=== PATIENT | male | born 1985 | race Two or more races ===

== ENCOUNTER 2025-03-14 21:49 | Emergency (ER) | payer BC, MEDICAID, SELFPAY ==
[2025-03-14 21:51] VITALS: BMI 38.0
[2025-03-14 22:02] VITALS: BP 164/102; PULSE 60; RESP 20; TEMP 36.7; O2SAT 99
--- NOTE | 2025-03-14 22:07 | XR_ITS ---
Examination: CT abdomen and pelvis without contrast. Coronal 3-D reconstructions. Sagittal 2-D reconstructions. Date and time of exam:March 14, 2025, 1038 hours INDICATIONS: Left flank pain beginning one hour ago CTDI: vol (mGy): 11.7 DLP: (mGycm): 832 Technique: Axial images of the abdomen have been obtained, 3 mm slice thickness Intravenous contrast material has not been administered. Low dose protocols were performed. One or more of the following dose reduction techniques were used; automated exposure control, adjustment of the mA and/or KV according to patient size, use of iterative reconstruction technique. Findings: No liver or splenic lesions No gallstones. No pancreatic mass Significant scarring left kidney and right kidney No renal or ureteral calculi, no hydronephrosis Aorta normal size Normal appendix No bowel obstruction No bladder mass No prostatomegaly Grade 1 spondylolisthesis of L5 on S1 with advanced degenerative disc disease at this level IMPRESSION: Significant bilateral renal scarring No hydronephrosis or ureteral calculi No bladder mass or bladder calculi
--- NOTE | 2025-03-14 22:10 | PD.EDBACK ---
ED Back Injury Pain RME/HPI General Chief Complaint: Back Pain/Injury Stated Complaint: SUDDEN ONSET L FLANK/BACK PAIN NV Time Seen by Provider: 03/14/25 21:54 Source: patient, family, RN notes reviewed and old records reviewed Arrival date/time: 03/14/25 21:49 Mode of arrival: ambulatory Limitations: no limitations RME / HPI RME / HPI Narrative: 39yom presents to ED for sudden onset of left flank pain that initiated 1-2 hours prior to ED arrival. Patient reports nausea and vomiting. No fever, abdominal pain, diarrhea or urinary symptoms reported. Patient took ibuprofen at home but vomited shortly after. Denies history of kidney stones. Related Data Home Medications ?Medication ?Instructions ?Recorded ?Confirmed aspirin 81 mg tablet,delayed 81 mg PO QDAY 05/15/19 05/15/19 release (Aspir-) atorvastatin 80 mg tablet 80 mg PO QDAY 05/15/19 05/15/19 metoprolol tartrate 50 mg tablet 50 mg PO BID 05/15/19 05/15/19 ticagrelor 90 mg tablet (Brilinta) 90 mg PO BID 05/15/19 05/15/19 Previous Rx's ?Medication ?Instructions ?Recorded amoxicillin 875 mg-potassium 1 tab PO BID #14 tabs 05/17/19 clavulanate 125 mg tablet (Augmentin) blood-glucose meter (Advocate #1 ea 05/17/19 Redi-Code Glucose Monitor kit) insulin glargine 100 unit/mL (3 30 unit (0.3 mL) subcut QDAY #15 mL 05/17/19 mL) subcutaneous pen (Lantus Solostar U-100 Insulin) acetaminophen 500 mg tablet 1,000 mg (2 x 500 mg) PO Q6H PRN 03/15/25 (Tylenol Extra Strength) pain #30 tabs methocarbamol 500 mg tablet 1,000 mg (2 x 500 mg) PO Q8H PRN 03/15/25 pain #30 tabs naproxen 500 mg tablet (Naprosyn) 500 mg PO BID PRN pain #20 tabs 03/15/25 ondansetron 4 mg disintegrating 4 mg PO Q6H PRN nausea and 03/15/25 tablet vomiting #10 tabs Allergies Allergy/AdvReac Type Severity Reaction Status Date / Time No Known Allergies Allergy Verified 03/14/25 21:53 Review of Systems Review of Systems Systems Reviewed: All systems reviewed, normal except as documented Constitutional Constitutional: Denies chills and Denies fever(s) Gastrointestinal Gastrointestinal: Denies abdominal pain, Denies loose stools, Reports nausea and Reports vomiting Genitourinary Genitourinary: Denies dysuria, Reports flank pain and Denies hematuria Past Medical History Past Medical History CARDIAC: Positive Myocardial Infarction, Coronary Artery Disease and Hypertension GASTROINTESTINAL: Positive Obesity Surgical History SURGICAL: Positive Coronary Stent Social History SMOKING STATUS: Never smoker SUBSTANCE USE: does not use ALCOHOL: Never ED Exam General Limitations: Present no limitations General appearance: Present alert, in no apparent distress and other (appears uncomfortable 2/2 pain) Head Head exam: Present atraumatic and normocephalic Eye Eye exam: Present normal appearance, PERRL and EOMI ENT ENT exam: Present normal exam and mucous membranes moist Neck Neck exam: Present normal inspection and full ROM Chest Chest inspection: Present normal inspection and symmetric chest wall rise Respiratory Respiratory exam: Present normal lung sounds bilaterally; Absent respiratory distress Cardiovascular Cardiovascular exam: Present regular rate and normal rhythm Abdominal Exam Abdominal exam: Present soft; Absent distention, tenderness, guarding or rebound Extremities Exam Extremities exam: Present normal inspection and full ROM Back Exam Back exam: Present CVA tenderness (L) Neurological Exam Neurological exam: Present alert and oriented X3 Psychiatric Psychiatric exam: Present normal affect and normal mood Skin Skin exam: Present warm, dry, intact and normal color Course Quality Measures none Orders Category Date Time Status EKG (ED ONLY) *Do not use* NOW Care 03/14/25 23:50 Completed Insert IV NOW Care 03/15/25 00:[address] abdomen pelvis wo con Stat Exams 03/14/25 22:07 Completed EKG (ED Only) Stat Exams 03/14/25 23:50 Ordered CBC Stat Lab 03/14/25 23:14 Completed CMP [Comprehensive Metabolic Panel] Stat Lab 03/14/25 23:14 Completed Lipase Stat Lab 03/14/25 23:14 Completed Potassium Stat Lab 03/14/25 23:48 Completed Troponin I Stat Lab 03/14/25 23:48 Completed UA [Urinalysis] Stat Lab 03/15/25 01:38 Completed HYDROcodone/APAP 10/325 [Jelm 10/325] Med 03/14/25 22:07 Discontinued 1 tab PO X1 ONE Ketorolac Inj [Toradol Inj] Med 03/14/25 22:07 Discontinued 30 mg IM X1 ONE Morphine Inj Med 03/15/25 00:31 Discontinued 4 mg IVP X1 ONE Ondansetron Inj [Zofran Inj] Med 03/14/25 22:07 Discontinued 4 mg IM X1 ONE Sodium Chloride 0.9% 1000 ml [Ns] 1,000 ml Med 03/15/25 00:08 Discontinued IV 999 mls/hr Vital Signs Vital signs: Vital Signs Temperature 98.0 F 03/14/25 22:02 Pulse Rate 60 03/14/25 22:02 Respiratory Rate 20 03/14/25 22:02 Blood Pressure 164/102 H 03/14/25 22:02 Pulse Oximetry (%) 99 03/14/25 22:02 Oxygen Delivery Method Room Air 03/14/25 22:02 PROCEDURES: EKG Interpretation #1: Date of EK03/15/25 Rate: 55 Interpretation: Interpreted by me EKG Impression: No acute ST-T changes Additional EKG comment: Sinus archie. Incomplete RBBB (old). Back Pain / Injury MDM Narrative MDM Narrative:: 39yom presents to ED for sudden onset of left flank pain that initiated 1-2 hours prior to ED arrival. Patient reports nausea and vomiting. No fever, abdominal pain, diarrhea or urinary symptoms reported. Patient took ibuprofen at home but vomited shortly after. Denies history of kidney stones. Patient reassessed. Symptoms improved, resting comfortably in ED bed. Patient updated on labs and imaging. Encouraged adequate fluids,symptomatic treatment prn. Stable for dc, RTED precautions given. Patient data External records reviewed:: [facility] previous records (05/15/19 admission for pneumonia) Clinical information provided by:: patient and family (sister) Social determinants that could affect healthcare access:: none Patient has the following chronic illnesses:: DM, HTN, CAD, obesity How is presenting disease/condition affected by chronic disease/condition?: exacerbated by Evaluation data The following diagnostics were reviewed and interpreted by me:: lab results and radiology exam(s) Lab and/or radiology exams considered but not ordered:: none Interpretation Summary: CT abd/pelvis: IMPRESSION: Significant bilateral renal scarring No hydronephrosis or ureteral calculi No bladder mass or bladder calculi Dictated By: George Morrell MD Potassium 5.9, suspect hemolyzed. Recheck K 5.2, minimal elevation. Giving IVF No peaked t waves on EKG Glucose elevated 344. hx DM, giving IVF Creatinine 1.4, minimally elevated Negative troponin UA Medications / Prescriptions Medications or Prescriptions considered but not ordered:: No antibiotics recommended at this time Medication administrations:: Medication Administration History Discontinued Medications Hydrocodone Bitart/Acetaminophen (Hydrocodone/Apap 10/325 Tab) 1 tab PO X1 ONE Stop: 03/14/25 22:08 Last Admin: 03/14/25 22:22 Dose: 1 tab Documented By: BD Sodium Chloride (Ns) 1,000 mls @ 999 mls/hr IV .Q1H1M ONE Stop: 03/15/25 01:08 Last Infusion: 03/15/25 01:28 Dose: Infused Documented By: Admin: 03/15/25 00:54 Dose: 999 mls/hr Documented By: BD Ketorolac Tromethamine (Ketorolac Inj 60 Mg/2 Ml Vial) 30 mg IM X1 ONE Stop: 03/14/25 22:08 Last Admin: 03/14/25 22:22 Dose: 30 mg Documented By: BD Morphine Sulfate (Morphine Sulf Inj 10 Mg/Ml Vial) 4 mg IVP X1 ONE Stop: 03/15/25 00:32 Last Admin: 03/15/25 00:53 Dose: 4 mg Documented By: BD Ondansetron HCl (Ondansetron Inj 2 Mg/Ml Inj 2 Ml) 4 mg IM X1 ONE; Protocol Stop: 03/14/25 22:08 Last Admin: 03/14/25 22:22 Dose: 4 mg Documented By: BD Comments: given im above medications administered in ED Consultations Consultation(s) initiated? (list below): No Diagnosis Differential diagnosis back pain/injury: lumbar radiculopathy, sciatica, strain of lumbar region, renal colic and pyelonephritis Most likely diagnosis given after review of the tests above:: flank pain, hyperglycemia Admission Indicated Admission indicated?: not indicated Admission Request Was there a request for admission?: No Disposition Plan Disposition Plan: Discharge Discharge Attestation Discharge Attestation: The patient and all family members were given an opportunity to ask questions and understood the discharge instructions. Discharge instructions specifically effects, indications for sooner follow up or return to the emergency department, and the expected course of current diagnosis. Patient condition: Stable Discharge Plan Plan Patient Disposition: HOME (Self Care) Patient condition on transfer: Stable Prescriptions/Referrals Prescriptions/Med Rec: New ondansetron 4 mg tablet,disintegrating 4 mg PO Q6H PRN (Reason: nausea and vomiting) Qty: 10 0RF naproxen [Naprosyn] 500 mg tablet 500 mg PO BID PRN (Reason: pain) Qty: 20 0RF methocarbamol 500 mg tablet 1,000 mg PO Q8H PRN (Reason: pain) Qty: 30 0RF acetaminophen [Tylenol Extra Strength] 500 mg tablet 1,000 mg PO Q6H PRN (Reason: pain) Qty: 30 0RF No Action atorvastatin 80 mg Tablet 80 mg PO QDAY aspirin [Aspir-81] 81 mg Tablet,Delayed Release (Dr/Ec) 81 mg PO QDAY metoprolol tartrate 50 mg Tablet 50 mg PO BID Brilinta 90 mg Tablet 90 mg PO BID amoxicillin-pot clavulanate [Augmentin] 875-125 mg tablet 1 tab PO BID Qty: 14 0RF Lantus Solostar U-100 Insulin 100 unit/mL (3 mL) insulin pen 30 unit SC QDAY Qty: 15 0RF (DME) blood-glucose meter [Advocate Redi-Code Glu Monitor] kit See Dose Instructions .ROUTE .MEDSUPPLY Qty: 1 0RF Dose Instruction: As directed Rx Instructions: As directed Referrals: No Primary/Family,Physician [Primary Care Provider] - In 1 week Problem List Clinical Impression: Left flank pain Patient/Caregiver Discharge Instructions Education Materials: ED Flank Pain, Uncertain Cause Print Language: Estonian Stand Alone Forms: Mari Award Info., Work/School Release, Patient Portal Info Letter PA/WET PROC[employer] M[employer]ER Supervising Physician PA/WET [employer] MILLER Supervising Physician: Mai
[2025-03-14] MEDS: KETOROLAC INJ 60 MG/2 ML VIAL 30 MG IM (22:22)
[2025-03-14] MEDS: ONDANSETRON INJ 2 MG/ML INJ 2 ML 4 MG IM (22:22)
[2025-03-14 23:28] LABS: Basophils # (Auto) 0.1 Thou/mm3 (0.0-0.2); Basophils % (Auto) 1 % (0-2.5); Eosinophils # (Auto) 0.1 Thou/mm3 (0.0-0.5); Eosinophils % (Auto) 1 % (0-10); Hematocrit 47.4 % (41.0-53.0); Hemoglobin 16.5 g/dL (13.5-16.0); Immature Granulocytes Auto 0.04 Thou/mm3 (0.00-0.00); Lymphocytes # (Auto) 1.0 Thou/mm3 (1.0-4.8); Lymphocytes % (Auto) 9 % (10-50); Mean Corpuscular HGB Conc 34.8 g/dl (31.0-37.0); Mean Corpuscular Hemoglobin 30.2 pg (25.0-35.0); Mean Corpuscular Volume 87 fL (80-100); Monocytes # (Auto) 0.4 Thou/mm3 (0.0-0.8); Monocytes % (Auto) 4 % (0-12); Neutrophils # (Auto) 9.4 Thou/mm3 (1.8-7.7); Neutrophils % (Auto) 85 % (37-80); Nucleated Red Blood Cell # 0.00 Thou/mm3 (0.00-0.00); Nucleated Red Blood Cell % 0 /100 WBC (0); Platelet Count 167 Thou/mm3 (140-440); RDW Standard Deviation 38.5 fL (35.1-43.9); Red Blood Count 5.47 Miln/mm3 (4.50-5.90); White Blood Count 11.0 Thou/mm3 (3.8-10.6)
[2025-03-14 23:46] LABS: Alanine Aminotransferase 23 U/L (10-49); Albumin, Serum 4.8 gm/dL (3.5-5.0); Albumin/Globulin Ratio 1.7 (1.2-2.2); Alkaline Phosphatase 81 U/L (46-116); Anion Gap 9 (7-16); Aspartate Amino Transferase 22 U/L (0-34); BUN/Creatinine Ratio 13 Ratio (12-20); Bilirubin,Total 0.7 mg/dL (0.3-1.2); Blood Urea Nitrogen 18 mg/dL (9-23); Calcium 10.4 mg/dL (8.3-10.6); Calcium (Corrected) 10.4 mg/dL (8.5-10.1); Carbon Dioxide 30.1 mMol/L (20.0-31.0); Chloride 100 mMol/L (98-107); Creatinine (Component) 1.4 mg/dL (0.6-1.3); Estimated Creatinine Clearance 96.6 mL/min (>60); Globulin 2.8 gm/dL (2.3-3.5); Glucose 344 mg/dL (74-106); Lipase 38 U/L (12-53); Osmolality,Calculated 293 (275-295); Potassium 5.8 mMol/L (3.4-5.1); Sodium 139 mMol/L (136-145); Total Protein 7.6 gm/dL (5.7-8.2); eGFR > 60 See Note
[2025-03-15] MEDS: MORPHINE SULF INJ 10 MG/ML VIAL 4 MG IVP (00:53)
[2025-03-15 00:54] LABS: Potassium 5.2 mMol/L (3.4-5.1); Troponin I < 0.020 ng/mL (0.0-0.045)
[2025-03-15] MEDS: SODIUM CHLORIDE 0.9% 1000 ML 1,000 ML 999 ML IV (00:54)
[2025-03-15 01:52] LABS: Collection Type, Urine Clean Catch
[2025-03-15 01:57] LABS: Bilirubin,Urine Negative (Negative); Blood,Urine Negative (Negative); Clarity,Urine Clear (Clear/Hazy); Color,Urine Lt-Yellow (Lt Yel-Yel); Glucose, Urine 4+ (Negative); Ketones,Urine 1+ (Negative); Leukocyte Esterase,Urine Negative (Negative); Nitrite,Urine Negative (Negative); PH,Urine 6.0 (5.0-7.0); Protein,Urine 1+ (Neg - Trace); RBC,Urine 18 /hpf (0-3); Specific Gravity,Urine 1.046 (1.001-1.035); Squamous Epithelial Cell,Urine 5 /hpf (0-5); Urobilinogen,Urine Negative mg/dL (0.0-1.0); WBC,Urine 2 /hpf (0-5)
== END 2025-03-15 02:09 | disposition home or self-care (01) ==
PROVIDERS: Physician Assistant; Emergency Provider Emergency Medicine
DX: R10.9 Unspecified abdominal pain (principal); R11.2 Nausea with vomiting, unspecified; E11.9 Type 2 diabetes mellitus without complications; I10 Essential (primary) hypertension; I25.2 Old myocardial infarction; I25.10 Atherosclerotic heart disease of native coronary artery without angina pectoris; I45.10 Unspecified right bundle-branch block; E66.9 Obesity, unspecified; Z68.38 Body mass index [BMI] 38.0-38.9, adult; Z79.82 Long term (current) use of aspirin; Z79.899 Other long term (current) drug therapy; Z79.4 Long term (current) use of insulin; Z95.5 Presence of coronary angioplasty implant and graft
CPT/HCPCS: 36415; 74176; 80053; 81001; 83690; 84132; 84484; 85025; 93005; 96361; 96372; 96374; 99283; J1885; J2270; J2405; J7030; A9270

== ENCOUNTER → 2025-06-03 | Outpatient (CLI) | payer BC, MEDICAID, SELFPAY ==
--- NOTE | 2025-06-03 | XR_ITS ---
EXAMINATION: Lumbar spine 3 views TECHNIQUE: AP, lateral, coned lateral lower lumbar spine 3 views Date and time: June 03, 2025, 12 0 6:00 p.m. INDICATIONS: Low back pain beginning 1 week ago. FINDINGS: No lumbar fracture. Grade 1 spondylolisthesis L5 on S1 Advanced degenerative disc disease L5-S1 IMPRESSION: Grade 1 spondylolisthesis L5 on S1 Advanced degenerative disc disease L5-S1
== END | disposition home or self-care (01) ==
LOC: CDIM 11:45 → COPL 12:15
PROVIDERS: PCP Physician Assistant; Referring Provider Physician Assistant; Visit Provider Physician Assistant
DX: M51.370 Other intervertebral disc degeneration, lumbosacral region with discogenic back pain only (principal); M43.17 Spondylolisthesis, lumbosacral region
CPT/HCPCS: 36415; 72100; 82947

== ENCOUNTER → 2025-06-07 | Outpatient (CLI) | payer BC, SELFPAY ==
[2025-06-07 08:24] LABS: Collection Type, Urine Clean Catch; Squamous Epithelial Cell,Urine 0 /hpf (0-5)
[2025-06-07 08:41] LABS: Basophils # (Auto) 0.1 Thou/mm3 (0.0-0.2); Basophils % (Auto) 1 % (0-2.5); Eosinophils # (Auto) 0.5 Thou/mm3 (0.0-0.5); Eosinophils % (Auto) 6 % (0-10); Hematocrit 44.6 % (41.0-53.0); Hemoglobin 15.5 g/dL (13.5-16.0); Immature Granulocytes Auto 0.03 Thou/mm3 (0.00-0.00); Lymphocytes # (Auto) 1.7 Thou/mm3 (1.0-4.8); Lymphocytes % (Auto) 23 % (10-50); Mean Corpuscular HGB Conc 34.8 g/dl (31.0-37.0); Mean Corpuscular Hemoglobin 29.6 pg (25.0-35.0); Mean Corpuscular Volume 85 fL (80-100); Monocytes # (Auto) 0.5 Thou/mm3 (0.0-0.8); Monocytes % (Auto) 7 % (0-12); Neutrophils # (Auto) 4.6 Thou/mm3 (1.8-7.7); Neutrophils % (Auto) 63 % (37-80); Nucleated Red Blood Cell # 0.00 Thou/mm3 (0.00-0.00); Nucleated Red Blood Cell % 0 /100 WBC (0); Platelet Count 176 Thou/mm3 (140-440); RDW Standard Deviation 38.3 fL (35.1-43.9); Red Blood Count 5.24 Miln/mm3 (4.50-5.90); White Blood Count 7.4 Thou/mm3 (3.8-10.6)
[2025-06-07 08:52] LABS: Glucose Estimated Average 301 mg/dL (80-131); Hemoglobin A1C 12.1 % Hgb (4.8-6.0)
[2025-06-07 09:15] LABS: Bilirubin,Urine Negative (Negative); Blood,Urine Negative (Negative); Clarity,Urine Clear (Clear/Hazy); Color,Urine Yellow (Lt Yel-Yel); Glucose, Urine 4+ (Negative); Ketones,Urine 1+ (Negative); Leukocyte Esterase,Urine Negative (Negative); Nitrite,Urine Negative (Negative); PH,Urine 6.5 (5.0-7.0); Protein,Urine 1+ (Neg - Trace); RBC,Urine 1 /hpf (0-3); Specific Gravity,Urine 1.036 (1.001-1.035); Urobilinogen,Urine Negative mg/dL (0.0-1.0); WBC,Urine < 1 /hpf (0-5)
[2025-06-07 09:25] LABS: Alanine Aminotransferase 20 U/L (10-49); Albumin, Serum 4.6 gm/dL (3.5-5.0); Albumin/Globulin Ratio 1.9 (1.2-2.2); Alkaline Phosphatase 84 U/L (46-116); Anion Gap 6 (7-16); Aspartate Amino Transferase 17 U/L (0-34); BUN/Creatinine Ratio 13 Ratio (12-20); Bilirubin,Total 0.9 mg/dL (0.3-1.2); Blood Urea Nitrogen 16 mg/dL (9-23); Calcium 9.3 mg/dL (8.3-10.6); Calcium (Corrected) 9.3 mg/dL (8.5-10.1); Carbon Dioxide 30.7 mMol/L (20.0-31.0); Cardiac Risk Estimate 5.2 RATIO (4.0-6.7); Chloride 101 mMol/L (98-107); Cholesterol 203 mg/dL (132-200); Creatinine (Component) 1.2 mg/dL (0.6-1.3); Free T4 (Free Thyroxine) 1.55 ng/dL (0.89-1.76); Globulin 2.4 gm/dL (2.3-3.5); Glucose 217 mg/dL (74-106); HDL Cholesterol 39 mg/dL (40-60); LDL Cholesterol,Calculated 129 mg/dL (0-130); Osmolality,Calculated 283 (275-295); Potassium 3.8 mMol/L (3.4-5.1); Sodium 138 mMol/L (136-145); Thyroid Stimulating Hormone 2.73 uIU/mL (0.55-4.78); Total Protein 7.0 gm/dL (5.7-8.2); Triglycerides 174 mg/dL (30-150); eGFR > 60 See Note
[2025-06-07 09:41] LABS: Creatinine MALB Rnd Ur > 245 mg/dL (30-125); Microalbumin Creat Ratio 83 mg/gCrea (<30); Microalbumin, Random Urine 205 mg/L (0-300)
== END | disposition home or self-care (01) ==
LOC: COPL 07:29
PROVIDERS: PCP Family Medicine; Referring Provider Physician Assistant; Visit Provider Physician Assistant
DX: E11.65 Type 2 diabetes mellitus with hyperglycemia (principal); Z13.220 Encounter for screening for lipoid disorders
CPT/HCPCS: 36415; 80053; 80061; 81001; 82043; 82570; 83036; 84439; 84443; 85025

== ENCOUNTER 2025-07-24 13:12 | Emergency (ER) | payer BC, SELFPAY ==
[2025-07-24 13:13] VITALS: BMI 40.6
[2025-07-24 14:23] VITALS: BP 144/88; PULSE 92; RESP 18; TEMP 37.5; O2SAT 99
--- NOTE | 2025-07-24 14:39 | XR_ITS ---
Examination: CT brain head without contrast. 2-D sagittal coronal reconstructions Date and time of exam: July 24, 2025, 1511 hours INDICATIONS: Onset headache today CTDI: vol (mGy): 53.7 DLP: (mGycm): 1070 Technique: Multiple CT axial sections of the brain have been obtained, 5 mm slice thickness. Contrast has not been administered. 2-D sagittal, coronal reconstructions have been obtained Low dose protocols were performed. One or more of the following dose reduction techniques were used; automated exposure control, adjustment of the mA and/or KV according to patient size, use of iterative reconstruction technique. Findings: Large area of edema in the right temporal parietal lobe with mass effect upon the right lateral ventricular system, shift of the frontal horns to the left 5 mm No acute hemorrhage either intra or extra-axial The ventricles are nonenlarged Cranial vault intact IMPRESSION: Large abnormal area of edema in the right temporal parietal lobe with mass effect Differential would include acute infarct as well as neoplastic lesion, particularly metastasis Recommend brain MRI MRA follow-up pre and postcontrast
--- NOTE | 2025-07-24 14:39 | XR_ITS ---
EXAMINATION: AP chest single view TECHNIQUE: AP portable upright chest single view Date and time: July 24, 2025, 1458 hours, comparison May 15, 2019 INDICATIONS: Severe headache with vomiting today. FINDINGS: Mild enlargement cardiac contour. No aspiration pneumonia. Minor prominence central pulmonary vasculature. Old right-sided rib fractures. IMPRESSION: Negative for aspiration pneumonia
--- NOTE | 2025-07-24 14:39 | EKG_ITS ---
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1985 Requested By: Jacquelyn Boothe Order Number: [id number] Reading MD: Jacquelyn Boothe Measurements Intervals [place] Rate: 94 P: 29 CA: 168 QRS: -59 QRSD: 117 T: 72 QT: 377 QTc: 473 Interpretive Statements SINUS RHYTHM LEFT ATRIAL ENLARGEMENT [-0.15mV P-WAVE IN V1/V2] LEFT ANTERIOR FASCICULAR BLOCK [QRS AXIS <= -45, QR IN I, RS IN II] ANTEROLATERAL MYOCARDIAL INFARCTION , OF INDETERMINATE AGE [40+ ms Q WAVE IN I/aVL/V3-V6] Compared to ECG 03/15/2025 00:00:11 Atrial abnormality now present Sinus bradycardia no longer present Incomplete right bundle-branch block no longer present Myocardial infarct finding still present /store/S0/[id number]/ecg/[id number].pdf
--- NOTE | 2025-07-24 14:41 | PD.EDHEAD ---
ED Head Injury RME/HPI General Chief complaint: Head Injury Stated complaint: HEADACHE X2 DAYS, N/V SINCE THIS AM Time Seen by Provider: 07/24/25 13:18 Arrival date/time: 07/24/25 13:12 39-year-old male patient with significant history of diabetes mellitus, came in for evaluation regarding headache. Patient woke up this morning with severe headache, pulsating, associated with multiple episode of vomiting. Patient has been having on and off headache for several weeks same location., Right side of the head. Patient cannot take anything down due to vomiting. Patient denies any head trauma. Denies any fever. Denies any chest pain abdominal pain or other complaints. No medication was taken prior to ER visit. Currently patient is GCS 15 Related Data Home Medications ?Medication ?Instructions ?Recorded ?Confirmed aspirin 81 mg tablet,delayed 81 mg PO QDAY 05/15/19 05/15/19 release (Aspir-) atorvastatin 80 mg tablet 80 mg PO QDAY 05/15/19 05/15/19 metoprolol tartrate 50 mg tablet 50 mg PO BID 05/15/19 05/15/19 ticagrelor 90 mg tablet (Brilinta) 90 mg PO BID 05/15/19 05/15/19 Previous Rx's ?Medication ?Instructions ?Recorded amoxicillin 875 mg-potassium 1 tab PO BID #14 tabs 05/17/19 clavulanate 125 mg tablet (Augmentin) blood-glucose meter (Advocate #1 ea 05/17/19 Redi-Code Glucose Monitor kit) insulin glargine 100 unit/mL (3 30 unit (0.3 mL) subcut QDAY #15 mL 05/17/19 mL) subcutaneous pen (Lantus Solostar U-100 Insulin) acetaminophen 500 mg tablet 1,000 mg (2 x 500 mg) PO Q6H PRN 03/15/25 (Tylenol Extra Strength) pain #30 tabs methocarbamol 500 mg tablet 1,000 mg (2 x 500 mg) PO Q8H PRN 03/15/25 pain #30 tabs naproxen 500 mg tablet (Naprosyn) 500 mg PO BID PRN pain #20 tabs 03/15/25 ondansetron 4 mg disintegrating 4 mg PO Q6H PRN nausea and 03/15/25 tablet vomiting #10 tabs Allergies Allergy/AdvReac Type Severity Reaction Status Date / Time No Known Allergies Allergy Verified 07/24/25 13:15 Review of Systems Review of Systems Narrative Review of Systems: Review of system reviewed and within normal limits except mentioned in HPI ED Exam Narrative Physical exam: VITAL SIGNS: Reviewed. GENERAL APPEARANCE: Alert and interactive, follows commands, no acute distress, HEAD AND FACE: Non-traumatic. ENT: PERRL, pink conjunctivitis, eyelid no trauma, Mucous membrane moist. NECK: Supple, nontender, no nuchal rigidity. CHEST: No tenderness, no crepitus, no paradoxical movement, no retractions. LUNGS: Clear, well ventilated, symmetric, no rales, no wheezing, no ronchi, no stridor, good breath sounds bilaterally. HEART: Regular rate, regular rhythm, no murmur, no gallops. ABDOMEN: Soft, positive bowel sounds, nondistended, no guarding, nontender, no rebound, no masses, RECTAL: Deferred. GENITAL: Deferred. NEUROLOGICAL: Gross motor function intact sensory function intact, Appropriate for age. MUSCULOSKELETAL: low back nontender, full range of motion. EXTREMITIES: Nontender, full range of motion. SKIN: Color pink, dry, no rash, no lacerations, no abrasions, no contusions. LYMPHATICS: Deferred. Course Quality Measures none Orders Category Date Time Status EKG (ED ONLY) *Do not use* NOW Care 07/24/25 14:[address] head/brain wo con Stat Exams 07/24/25 14:39 Completed EKG (ED Only) Stat Exams 07/24/25 14:39 Draft XR chest 1V Stat Exams 07/24/25 14:39 Completed Acetone [Beta Hydroxybutyrate] Stat Lab 07/24/25 15:35 Completed CBC Stat Lab 07/24/25 15:35 Completed Comprehensive Metabolic Panel Stat Lab 07/24/25 15:35 Completed Partial Thromboplastin Time Stat Lab 07/24/25 15:35 Completed Prothrombin Time with INR Stat Lab 07/24/25 15:35 Completed Troponin I Stat Lab 07/24/25 15:35 Completed Urinalysis, C/S if Indicated Stat Lab 07/24/25 14:39 Ordered Famotidine Inj [Pepcid Inj] Med 07/24/25 14:39 Discontinued 20 mg IVP X1 ONE Labetalol* IV [Trandate IV] Med 07/24/25 16:53 Discontinued 10 mg IVP X1 ONE Metoclopramide Inj [Reglan Inj] Med 07/24/25 14:39 Discontinued 10 mg IVP X1 ONE Morphine* Inj Med 07/24/25 14:40 Discontinued 4 mg IVP X1 ONE Ringers Lactated 1000 ml [Lactated Ringers] 1,000 ml Med 07/24/25 14:40 Discontinued IV 999 mls/hr dexAMETHasone INJ [Decadron Inj] Med 07/24/25 16:00 Discontinued 10 mg IVP X1 ONE levETIRAcetam INJ [Keppra Inj] Med 07/24/25 15:56 Discontinued 1,500 mg IVP X1 ONE Vital Signs Vital signs: Vital Signs Temperature 99.5 F 07/24/25 14:23 Pulse Rate 92 07/24/25 14:23 Respiratory Rate 18 07/24/25 14:23 Blood Pressure 144/88 H 07/24/25 14:23 Pulse Oximetry (%) 99 07/24/25 14:23 Oxygen Delivery Method Room Air 07/24/25 14:23 Head Injury MDM Narrative MDM Narrative:: 39-year-old male patient with significant history of diabetes mellitus, came in for evaluation regarding headache. Patient woke up this morning with severe headache, pulsating, associated with multiple episode of vomiting. Patient has been having on and off headache for several weeks same location., Right side of the head. Patient cannot take anything down due to vomiting. Patient denies any head trauma. Denies any fever. Denies any chest pain abdominal pain or other complaints. No medication was taken prior to ER visit. CT scan of the head showed large right parietal temporal hypodense area with mass effect and 6 mm leftward midline shift no significant hemorrhage noted which may represent subacute infarct other space-occupying lesion cannot be excluded Patient received IV fluids, morphine Reglan [id number] Pepcid Keppra with mild improvement. Patient is to be transferred with neurosurgery on-call around. Patient family agrees to be transferred. Patient got accepted to [facility], neurosurgeon Dr. Johnson Patient data External records reviewed:: None Clinical information provided by:: patient and family Social determinants that could affect healthcare access:: none Patient has the following chronic illnesses:: Diabetes How is presenting disease/condition affected by chronic disease/condition?: uneffected by Evaluation data The following diagnostics were reviewed and interpreted by me:: lab results and radiology exam(s) Lab and/or radiology exams considered but not ordered:: None Interpretation Summary: See above Medications / Prescriptions Medications or Prescriptions considered but not ordered:: None Medication administrations:: Medication Administration History Discontinued Medications Dexamethasone Sodium Phosphate (Dexamethasone Sod Phos Inj 10 Mg/Ml Vial) 10 mg IVP X1 ONE Stop: 07/24/25 16:01 Last Admin: 07/24/25 16:23 Dose: 10 mg Documented By: KRYSTA Famotidine (Famotidine Inj 10 Mg/Ml Vial 2 Ml) 20 mg IVP X1 ONE Stop: 07/24/25 14:40 Last Admin: 07/24/25 15:49 Dose: 20 mg Documented By: KRYSTA Lactated Ringer's (Lactated Ringers) 1,000 mls @ 999 mls/hr IV .Q1H1M ONE Stop: 07/24/25 15:40 Last Infusion: 07/24/25 16:54 Dose: Infused Documented By: Admin: 07/24/25 15:51 Dose: 999 mls/hr Documented By: KRYSTA Labetalol HCl (Labetalol Inj 5 Mg/Ml Vial 4 Ml) 10 mg IVP X1 ONE Stop: 07/24/25 16:54 Last Admin: 07/24/25 17:21 Dose: 10 mg Documented By: KRYSTA Levetiracetam (Levetiracetam Inj 100 Mg/Ml Vial 5ml) 1,500 mg IVP X1 ONE Stop: 07/24/25 15:57 Last Admin: 07/24/25 16:24 Dose: 1,500 mg Documented By: KRYSTA Metoclopramide HCl (Metoclopramide Inj 5 Mg/Ml Vial 2 Ml) 10 mg IVP X1 ONE; Protocol Stop: 07/24/25 14:40 Last Admin: 07/24/25 15:47 Dose: 10 mg Documented By: KRYSTA Morphine Sulfate (Morphine Sulf Inj 4 Mg/Ml Vial) 4 mg IVP X1 ONE Stop: 07/24/25 14:41 Last Admin: 07/24/25 15:50 Dose: 4 mg Documented By: KRYSTA See above Consultations Consultation(s) initiated? (list below): No Diagnosis Differential diagnosis head injury: subdural hematoma and other (Headache, brain mass,) Most likely diagnosis given after review of the tests above:: Brain mass, headache Admission Indicated Admission indicated?: indicated Explain why admission is indicated or not indicated:: Transfer to [facility] Admission Request Was there a request for admission?: No Disposition Plan Disposition Plan: Transfer Discharge Plan Plan Patient Disposition: [facility] Pt Being Transferred to: [facility] Prescriptions/Referrals Prescriptions/Med Rec: No Action atorvastatin 80 mg Tablet 80 mg PO QDAY aspirin [Aspir-81] 81 mg Tablet,Delayed Release (Dr/Ec) 81 mg PO QDAY metoprolol tartrate 50 mg Tablet 50 mg PO BID Brilinta 90 mg Tablet 90 mg PO BID amoxicillin-pot clavulanate [Augmentin] 875-125 mg tablet 1 tab PO BID Qty: 14 0RF Lantus Solostar U-100 Insulin 100 unit/mL (3 mL) insulin pen 30 unit SC QDAY Qty: 15 0RF (DME) blood-glucose meter [Advocate Redi-Code Glu Monitor] kit See Dose Instructions .ROUTE .MEDSUPPLY Qty: 1 0RF Dose Instruction: As directed Rx Instructions: As directed ondansetron 4 mg tablet,disintegrating 4 mg PO Q6H PRN (Reason: nausea and vomiting) Qty: 10 0RF naproxen [Naprosyn] 500 mg tablet 500 mg PO BID PRN (Reason: pain) Qty: 20 0RF methocarbamol 500 mg tablet 1,000 mg PO Q8H PRN (Reason: pain) Qty: 30 0RF acetaminophen [Tylenol Extra Strength] 500 mg tablet 1,000 mg PO Q6H PRN (Reason: pain) Qty: 30 0RF Referrals: Raj Miller [Primary Care Provider] - In 1 week Problem List Clinical Impression: Headache, Brain mass Patient/Caregiver Discharge Instructions Print Language: Tuvaluan Stand Alone Forms: Mari Award Info., Patient Portal Info Letter
[2025-07-24] MEDS: METOCLOPRAMIDE INJ 5 MG/ML VIAL 2 ML 10 MG IVP (15:47)
[2025-07-24] MEDS: FAMOTIDINE INJ 10 MG/ML VIAL 2 ML 20 MG IVP (15:49)
[2025-07-24] MEDS: MORPHINE SULF INJ 4 MG/ML VIAL IVP (15:50)
[2025-07-24 15:51] LABS: Basophils # (Auto) 0.0 Thou/mm3 (0.0-0.2); Basophils % (Auto) 0 % (0-2.5); Eosinophils # (Auto) 0.0 Thou/mm3 (0.0-0.5); Eosinophils % (Auto) 0 % (0-10); Hematocrit 47.1 % (41.0-53.0); Hemoglobin 16.2 g/dL (13.5-16.0); Immature Granulocytes Auto 0.05 Thou/mm3 (0.00-0.00); Lymphocytes # (Auto) 0.6 Thou/mm3 (1.0-4.8); Lymphocytes % (Auto) 5 % (10-50); Mean Corpuscular HGB Conc 34.4 g/dl (31.0-37.0); Mean Corpuscular Hemoglobin 29.3 pg (25.0-35.0); Mean Corpuscular Volume 85 fL (80-100); Monocytes # (Auto) 0.5 Thou/mm3 (0.0-0.8); Monocytes % (Auto) 4 % (0-12); Neutrophils # (Auto) 11.2 Thou/mm3 (1.8-7.7); Neutrophils % (Auto) 90 % (37-80); Nucleated Red Blood Cell # 0.00 Thou/mm3 (0.00-0.00); Nucleated Red Blood Cell % 0 /100 WBC (0); Platelet Count 157 Thou/mm3 (140-440); RDW Standard Deviation 37.9 fL (35.1-43.9); Red Blood Count 5.53 Miln/mm3 (4.50-5.90); White Blood Count 12.4 Thou/mm3 (3.8-10.6)
[2025-07-24] MEDS: RINGERS LACTATED 1000 ML 1,000 ML 999 ML IV (15:51)
[2025-07-24 15:58] LABS: Beta Hydroxybutyrate 2.7 mmol/L (<0.6)
[2025-07-24 16:00] LABS: INR 1.0 (0.9-1.3); Partial Thromboplastin Time 23.9 Seconds (22.0-36.0); Prothrombin Time 10.8 Seconds (9.0-12.2)
--- NOTE | 2025-07-24 16:02 | PRELIM_ITS ---
CT scan of the head without intravenous contrast (axial sections with sagittal and coronal reformats). July 24, 2025 at 1511 hours Clinical History: Headache. Comparison: No prior study is available for comparison. Findings: Large hypodense area in the right parietotemporal region with loss of galvan- white matter differentiation, causing mass effect with effacement of ipsilateral sulcal spaces and a 6 mm midline shift to the left. No significant internal hemorrhage is noted. MRI brain is recommended for further evaluation. The calvarium is unremarkable. The mastoid air cells and the visualized paranasal sinuses are clear. Impression: Large right parietotemporal hypodense area with mass effect and 6 mm leftward midline shift; no significant hemorrhage, which may represent subacute infarct, other space occupying lesion cannot be excluded. Recommend further evaluation with MRI, as clinically indicated. Discussion Details: Results Discussed With : Dr. Boothe at 03:47 PM 07/24/2025 Report Electronically Signed By: Perry Lopez 07/24/2025 4:02:14 PM [EST]
[2025-07-24 16:04] LABS: Alanine Aminotransferase 20 U/L (10-49); Albumin, Serum 4.7 gm/dL (3.5-5.0); Albumin/Globulin Ratio 1.5 (1.2-2.2); Alkaline Phosphatase 78 U/L (46-116); Anion Gap 15 (7-16); Aspartate Amino Transferase 17 U/L (0-34); BUN/Creatinine Ratio 10 Ratio (12-20); Bilirubin,Total 0.9 mg/dL (0.3-1.2); Blood Urea Nitrogen 14 mg/dL (9-23); Calcium 9.2 mg/dL (8.3-10.6); Calcium (Corrected) 9.2 mg/dL (8.5-10.1); Carbon Dioxide 23.6 mMol/L (20.0-31.0); Chloride 98 mMol/L (98-107); Creatinine (Component) 1.4 mg/dL (0.6-1.3); Estimated Creatinine Clearance 100.2 mL/min (>60); Globulin 3.2 gm/dL (2.3-3.5); Glucose 281 mg/dL (74-106); Osmolality,Calculated 284 (275-295); Potassium 4.3 mMol/L (3.4-5.1); Sodium 137 mMol/L (136-145); Total Protein 7.9 gm/dL (5.7-8.2); Troponin I < 0.020 ng/mL (0.0-0.045); eGFR > 60 See Note
[2025-07-24] MEDS: levETIRAcetam INJ 100 MG/ML VIAL 5ML 1500 MG IVP (16:24)
[2025-07-24 16:31] VITALS: BP 160/117; PULSE 87; RESP 21; TEMP 37.3; O2SAT 98
--- NOTE | 2025-07-24 16:49 | PC.NURSE ---
faxed transfer packet to [facility] transfer center. awaiting call back at this time
--- NOTE | 2025-07-24 17:01 | PC.NURSE ---
spoke to Jennifer from [facility] transfer center regarding pt transfer, she is requesting images to be pushed and she will call us back.
[2025-07-24 17:39] VITALS: BP 167/91; PULSE 93; RESP 24; O2SAT 96
[2025-07-24 18:18] LABS: Collection Type, Urine Clean Catch
--- NOTE | 2025-07-24 18:24 | PC.NURSE ---
REPORT CALLED AND ETA GIVEN TO RN AT [phone]. REPORT GIVEN TO [employer] [facility] PATIENT TRANSFERRING TO [facility].
[2025-07-24 18:37] LABS: Bilirubin,Urine Negative (Negative); Blood,Urine Negative (Negative); Clarity,Urine Clear (Clear/Hazy); Color,Urine Lt-Yellow (Lt Yel-Yel); Culture Indicated,Urine Not Indicated; Glucose, Urine 4+ (Negative); Ketones,Urine 3+ (Negative); Leukocyte Esterase,Urine Negative (Negative); Nitrite,Urine Negative (Negative); PH,Urine 6.5 (5.0-7.0); Protein,Urine 1+ (Neg - Trace); RBC,Urine 2 /hpf (0-3); Specific Gravity,Urine 1.038 (1.001-1.035); Squamous Epithelial Cell,Urine 1 /hpf (0-5); Urobilinogen,Urine Negative mg/dL (0.0-1.0); WBC,Urine < 1 /hpf (0-5)
== END 2025-07-24 18:22 | disposition short-term general hospital (02) ==
PROVIDERS: Nurse Practitioner Family; Emergency Provider Emergency Medicine; PCP Physician Assistant
DX: G93.9 Disorder of brain, unspecified (principal); I44.4 Left anterior fascicular block
CPT/HCPCS: 36415; 70450; 71045; 80053; 81001; 82010; 84484; 85025; 85610; 85730; 93005; 96361; 96374; 96375; 99284; J1100; J1920; J1953; J2270; J2765; J3490; J7120